=== PATIENT | male | born 1985 | race Caucasian/White ===

== ENCOUNTER 2021-05-06 14:43 | Emergency (ER) | payer BC ==
--- NOTE | 2021-05-06 15:22 | EDM.PDOC ---
ED HPI GENERAL MEDICAL PROBLEM - General Chief Complaint: Skin Complaint Stated Complaint: IZABEL SLAUGHTER Time Seen by Provider: 05/06/21 15:22 Source of Information: Reports: Patient, RN History Limitations: Reports: No Limitations - History of Present Illness INITIAL COMMENTS - FREE TEXT/NARRATIVE: Son is a 36 year old male whom present to ER with significant other for rash on bilateral hands and knee. Rash started last weekend when clearing weeds along the edge of the field this weekend. 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 Son has noted the rash has progressively worsened over the course of the last 2-3 days with increase today while in a non air conditioned buddhist for services. Son has tried calamine lotion and vinegar without improvement and looking for additional recommendations. 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 ED EXAM, SKIN/RASH Exam: See Below Exam Limited By: No Limitations General Appearance: Alert, WD/WN, No Apparent Distress, Mild Distress (itching rash left arm worsen than right) Eye Exam: Bilateral Eye: Normal Inspection Ears: Hearing Grossly Normal Nose: Normal Inspection Throat/Mouth: Normal Voice, No Airway Compromise Neck: Normal Inspection Respiratory/Chest: No Respiratory Distress, Normal Breath Sounds Cardiovascular: Normal Peripheral Pulses Extremities: Arm Pain (contact dermatitis rash linear left hand, forearm and wrist and right hand/forearm in addition to localized rash right knee), Leg Pain Neurological: Alert, Oriented Psychiatric: Normal Affect Skin: Rash (linear erythematous wheeping rash right knee, right knuckles, lateral wrist and forearm with small lesions involving entire bilateral arms below elbows (follows use of long leather gloves sued for work).) Course - Vital Signs Last Recorded V/S: Last Vital Signs Temp 36.2 C 05/06/21 15:08 Pulse 65 05/06/21 15:08 Resp 14 05/06/21 15:08 BP 122/84 05/06/21 15:08 Pulse Ox 87 L 05/06/21 15:08 Departure - Departure Time of Disposition: 15:50 Disposition: Home, Self-Care 01 Clinical Impression: Contact dermatitis, Poison kasandra dermatitis - Discharge Information Instructions: Pruritus, Poison Kasandra Dermatitis, Contact Dermatitis Referrals: PCP,None [Primary Care Provider] - Forms: ED Department Discharge Additional Instructions: DERM POISION KASANDRA 1. Wash all exposed clothing in hot water to decrease the oil form the poison Kasandra plant. Exposure to oil on clothing with increase then rash if in contact with skin again. 2. Benadryl 50mg every night for itching. or Topical Benadryl 2% gel to most affected areas with bandage. Topical hydrocortisone cream 1% every 6-8 hours for itching. 3. Claritin 10mg every am for itching or Zyrtec 4. Prednisone may be given if rash affected face, eye area or groin area TAKE as directed. 5. Consider Zanfel OTC (poison kasandra) cream to help with itch and continued intermittent Vinegar use. 6. Aveno Oatmeal bath, calamine lotion to help dry out lesions. 7. Clean skin with warm shower to removal all oil or resin from the skin. 8. See PCP in 5-7 days recheck sooner if worsen symptom. 9. Return for repeat evaluation if increase, changes, new or worsen symptoms. PREVENTION: Tecnu Poison Kasandra lotion Apply to affected/exposed area within 8 hours but sooner the better to pull oil out off skin. Leave in place x 20-30 minutes. Follow-up with cool shower using Tecnu Poison Kasandra scrub to remove residual oils to prevent reaction/rash the next day. Poison Kasandra, [place], and [place] What is poison kasandra, sumac, or oak? "Poisoning" from plants such as poison kasandra, poison sumac, and poison oak is an allergic reaction that happens when your skin touches these plants. Contact with the oil in these plants causes most people to have a rash, blisters, and itching. This contact usually happens in the spring a nd summer. Poison kasandra and poison oak have three leaflets on each stem and grow as a vine or barker. Poison sumac has opposing rows of 7 to 13 leaflets on each stem, with one leaflet at the end of the stem. It grows as a shrub or tree usually in damp, cool, marshy places. The poisonous oil is in the sap of these plants and oozes from any cut or crushed part of the plant, including the roots, stems, and leaves. How does the allergic reaction occur? The allergic reaction happens after touching one of these plants. A reaction can also occur after contact with anything that carries the oil from the plants, including clothes, tools, animal fur, or ashes and smoke from burning plants. What are the symptoms? The symptoms of an allergic reaction to poison kasandra, sumac, or oak include the following, from least serious to most serious: itching, often intense red blotches that may be raised or flat blisters, which may show up in rows where the plant or sap touched you fever headache swelling of your throat and eyes overall swelling of your body general feeling of discomfort stomach cramps, nausea, vomiting, diarrhea. Usually the rash is first noticed 1 to 2 days after contact. How bad the rash will be depends on the thickness of your skin, how allergic you are to the plant, and how much contact you had with the plant's oil. How is it diagnosed? Your healthcare provider will ask about where you have been recently and will examine the rash. How is it treated? To treat contact with poison kasandra, sumac, or oak, follow these steps: As soon as possible, wash all exposed skin gently with strong soap and water (or just water) to remove the plant's oils. A new product called Zanfel is a strong soap that is especially effective in preventing or relieving poison kasandra symptoms. Remove your clothes and shoes. Wash your clothes in detergent and water. Soak some cloth in aluminum acetate solution (Lucille's solution) and put the cloth on the rash. Then put calamine lotion or ointment on your skin to reduce the redness, ease the itching, and help dry up the blisters. Soaking in a lukewarm bath with cornstarch (1/2 cup) or colloidal oatmeal added may help ease the itching. DO NOT put lotion containing antihistamine on your skin. Cover any oozing blisters with a clean gauze bandage soaked in a baking soda and water solution. Once the oil is washed off the skin, the rash cannot be spread by scratching itchy skin or from oozing blisters. However, scratching may lead to infection of the open sores. If the rash spreads to your face, mouth, eyes, or genitals, or if you have a fever, headache, extreme redness, pus, or other severe symptoms, see your healthcare provider. He or she may recommend one or more of the following: Putting a corticosteroid ointment or cream on the affected areas 2 to 3 times a day, gradually reducing to once a day. Taking oral corticosteroids such as prednisone. Taking oral antibiotics or using an antibiotic cream if the rash becomes infected. Because these are all potent drugs, ask your healthcare provider about any possible side effects or interactions with other drugs you may be taking. How long will the effects last? The rash usually takes 1 to 3 weeks to heal. How can I take care of myself? Follow the steps outlined above to treat your rash. In addition, keep the affected skin clean and dry. Keep your fingernails well-trimmed and clean. Try not to scratch your skin to avoid an infection. See your healthcare provider if you develop severe symptoms. See your provider right away if your throat starts to swell. What can I do to help prevent a reaction to poison kasandra, sumac, or oak? Know what the plants look like and where they grow so you can avoid them. Wear long-sleeved shirts and long pants if you are going to be in an area where these plants grow. As soon as possible, preferably within 5 to 10 minutes of contact with the plant, rinse exposed skin thoroughly with soap and water (or just water). Be sure to clean under your fingernails. Wash clothes in hot water and detergent to remove any oil that may be on them. Also clean shoes, tools, camping or fishing gear, or anything else that has been in contact with the plants. Wear gloves when you do the washing and cleaning and then throw the gloves away. Give any outdoor pets a bath if you think they have had contact with the plants. Wear gloves and avoid contact with their fur while bathing them. Contact Dermatitis What is contact dermatitis? Contact dermatitis is an inflammation of the skin that happens when it is touched by an irritating substance. The rash is usually just in the area of skin that touched the substance How does it occur? Contact dermatitis occurs when the skin touches a substance that irritates the skin or causes an allergic reaction. Common causes of contact dermatitis from irritants are soaps, detergents, solvents, waxes, polishes, and hand sample display preparer. Common causes from allergic reactions are hair dyes, jewelry, f ingernail mosotho, and deodorants. Some of the other substances that might cause contact dermatitis are rubber, poison kasandra, and nickel. (Nickel is often in inexpensive jewelry, belt aditya, and the backs of watches.) What are the symptoms? The symptoms of contact dermatitis include: itching swelling redness of the skin scaling of the skin blisters that may break open and ooze, crust, or scale, possibly causing an infection. How is it diagnosed? Your healthcare provider will ask about possible irritants that may have touched your skin recently. He or she will look at the entire rash, noting where it is and how it looks in each area (for example, whether it is on one or both hands). How is it treated? Your healthcare provider may prescribe: cream or ointment to stop the itching and other symptoms antihistamine pills to help stop itching and any allergic reaction anti-inflammatory medicine, such as prednisone, if your rash is severe. You will need to try to avoid the substance that irritated your skin. How long will the effects last? With treatment, the rash should get better in a few days. How can I take care of myself? Follow your healthcare provider's instructions. In addition, you can: Avoid further irritating the area of skin where you have contact dermatitis. For example, do not scratch the skin or put cosmetics on the area. Put cool, moist cloths on the areas of skin with dermatitis. Avoid further contact with the substance that appears to cause the dermatitis. How can I help prevent contact dermatitis? If you know the substance that caused the dermatitis, make sure that the substance is not one of the ingredients in the cosmetic, cleaning, or other products that you use. If you are accidentally exposed to the substance, wash the exposed area right away. Wash thoroughly but gently to try to remove as much of the substance as possible without further irritating the skin. Whether or not you know what substances give you contact dermatitis, it may be helpful to: Learn to recognize poison oak, poison kasandra, and ragweed, and avoid contact with them. Use hypoallergenic cosmetics. Pat your skin dry instead of rubbing it. Try to avoid using solvents and chemicals, and wear protective gloves when you must use them. Use a battalion chief, or wear gloves when you wash dishes. Sepsis Event Note (ED) - Evaluation Sepsis Screening Result: No Definite Risk - Focused Exam Vital Signs: Vital Signs Temp Pulse Resp BP Pulse Ox 05/06/21 15:08 36.2 C 65 14 122/84 87 L
== END 2021-05-06 15:55 | disposition home or self-care (01) ==
LOC: JP.ED 14:43
DX: L23.7 Allergic contact dermatitis due to plants, except food (principal)
CPT/HCPCS: 99282; 99283